=== PATIENT | male | born 1945 | race Caucasian/White ===

== ENCOUNTER → 2020-11-13 18:35 | Outpatient (ROUT) | payer MEDICARE, SELFPAY ==
[2020-11-13 18:56] LABS: Add Manual Diff / Slide Review NO; Basophils Absolute Auto 0 /uL (0-100); Basophils Percent Auto 0.5 % (0-2); Eosinophils Absolute Auto 100 /uL (0-450); Eosinophils Percent Auto 1.6 % (2-4); Hematocrit 40.6 % (41-53); Hemoglobin 13.1 g/dL (13.5-17.5); Lymphocytes Absolute Auto 1200 /uL (1100-4500); Lymphocytes Percent Auto 16.3 % (25-40); Mean Corpuscular HGB Conc 32.3 % (30-36); Mean Corpuscular Hemoglobin 29.1 PG (26-34); Mean Corpuscular Volume 90.2 fL (80-100); Monocytes Absolute Auto 700 /uL (0-900); Monocytes Percent Auto 9.7 % (3-14); Neutrophils Absolute Auto 5400 /uL (1500-7000); Neutrophils Percent Auto 71.9 % (50-75); Platelet Count 221 X10^3/uL (150-400); White Blood Cell Count 7.4 X10^3/uL (4.5-11.0)
[2020-11-13 19:14] LABS: Erythrocyte Sedimentation Rate 6 MM/HR (0-15)
[2020-11-13 19:25] LABS: Alanine Aminotransferase 23 IU/L (<50); Albumin 4.2 g/dL (3.5-5.0); Albumin Globulin Ratio 1.6 (1.0-2.8); Alkaline Phosphatase 60 U/L (38-126); Aspartate Aminotransferase 29 IU/L (17-59); Bilirubin Total 0.4 mg/dL (0.2-1.3); Blood Urea Nitrogen 13 mg/dL (9-20); Carbon Dioxide 25 mmol/L (22-32); Chloride 103 mmol/L (98-107); Cholesterol 123 mg/dL (140-199); Estimated Glomerular Filt Rate > 60.0 mL/min (>60); Globulin 2.7 g/dL (1.7-4.1); Glucose 109 mg/dL (80-110); HDL Cholesterol 31 mg/dL (40-60); HEMOLYSIS < 15 (0-50); LDL Cholesterol Calculated 49 mg/dL (<100); Potassium 4.3 mmol/L (3.4-5.1); Sodium 135 mmol/L (137-145); Total Protein 6.9 g/dL (6.3-8.2); Triglycerides 214 mg/dL (35-150)
[2020-11-13 19:26] LABS: C-Reactive Protein Quant < 0.5 mg/dL (<1.0)
[2020-11-13 19:54] LABS: Prostate Specific Antigen 3.34 ng/mL (0.10-4.00)
== END ==
PROVIDERS: Family Provider Internal Medicine; Visit Provider Internal Medicine
DX: E78.2 Mixed hyperlipidemia (principal); I48.20 Chronic atrial fibrillation, unspecified; M35.3 Polymyalgia rheumatica; N40.1 Benign prostatic hyperplasia with lower urinary tract symptoms
CPT/HCPCS: 80053; 80061; 84153; 84443; 85025; 85651; 86140

== ENCOUNTER → 2021-12-20 16:15 | Outpatient (CLI) | payer MEDICARE, SELFPAY ==
[2021-12-20 16:47] LABS: Hematocrit 46.5 % (41-53); Hemoglobin 15.8 g/dL (13.5-17.5); Mean Corpuscular Hemoglobin 31.8 PG (26-34); Mean Corpuscular Volume 93.6 fL (80-100); Platelet Count 199 X10^3/uL (150-400); Red Blood Cell Count 4.96 X10^6/uL (4.5-5.9); Red Cell Distribution Width 13.8 % (11.6-14.8); White Blood Cell Count 10.2 X10^3/uL (4.5-11.0)
[2021-12-20 17:19] LABS: Alanine Aminotransferase 32 IU/L (<50); Albumin 4.6 g/dL (3.5-5.0); Albumin Globulin Ratio 1.4 (1.0-2.8); Alkaline Phosphatase 65 U/L (38-126); Aspartate Aminotransferase 41 IU/L (17-59); BUN Creatinine Ratio 16.3 (6-22); Bilirubin Total 0.9 mg/dL (0.2-1.3); Blood Urea Nitrogen 14 mg/dL (9-20); Calcium 9.3 mg/dL (8.4-10.2); Carbon Dioxide 26 mmol/L (22-32); Chloride 108 mmol/L (98-107); Cholesterol 147 mg/dL (140-199); Estimated Glomerular Filt Rate > 60 mL/min (>60); Globulin 3.3 g/dL (1.7-4.1); Glucose 100 mg/dL (80-110); HDL Cholesterol 36 mg/dL (40-60); HEMOLYSIS < 15 (0-50); LDL Cholesterol Calculated 64 mg/dL (<100); Potassium 4.3 mmol/L (3.4-5.1); Sodium 141 mmol/L (137-145); Total Protein 7.9 g/dL (6.3-8.2); Triglycerides 234 mg/dL (35-150)
== END ==
PROVIDERS: Family Provider Internal Medicine; PCP Internal Medicine; Referring Provider Internal Medicine; Visit Provider Internal Medicine
DX: D64.9 Anemia, unspecified (principal); E78.2 Mixed hyperlipidemia; G89.29 Other chronic pain; I10 Essential (primary) hypertension; I25.10 Atherosclerotic heart disease of native coronary artery without angina pectoris; I48.20 Chronic atrial fibrillation, unspecified; I73.9 Peripheral vascular disease, unspecified; K21.9 Gastro-esophageal reflux disease without esophagitis; M15.9 Polyosteoarthritis, unspecified; M54.9 Dorsalgia, unspecified; N13.8 Other obstructive and reflux uropathy; N40.1 Benign prostatic hyperplasia with lower urinary tract symptoms; Z79.01 Long term (current) use of anticoagulants
CPT/HCPCS: 36415; 80053; 80061; 84443; 85027

== ENCOUNTER 2022-03-05 11:29 | Emergency (ER) | payer MEDICARE, SELFPAY ==
[2022-03-05] VITALS (18 sets, daily range): BP systolic 118–142; BP diastolic 56–67; PULSE 66–85; RESP 15–71; TEMP 36.3; O2SAT 94–98; BMI 31.6
--- NOTE | 2022-03-05 12:04 | DI.US.S_ITS ---
PROCEDURE: US PELVIC LIMITED INDICATIONS: mass in groin TECHNIQUE: Real-time transabdominal scanning was performed of the right groin, with image documentation. COMPARISON: [facility], CT, CT ABDOMEN RENAL PROTOCOL, 10/18/2021, 9:25. [facility], US, US ARTERIAL DUPLEX LE RT, 03/05/2022, 13:17. FINDINGS: There is a large complex cystic mass measuring 6.0 x 3.6 x 5.1 cm. On Doppler ultrasound, there is no visible vascularity. There is soft tissue edema in right groin. The mass is superficial to the femoral vessels. There is no communication between the fluid collection with adjacent femoral artery or vein. The common femoral artery and vein both appear patent. IMPRESSION: 1. A large complex cystic mass measuring 6.0 x 3.6 x 5.1 cm in the right groin without vascularity on Doppler ultrasound. It is most likely a hematoma. Other diagnostic considerations are a large necrotic lymph node and an abscess. Recommend clinical correlation. 2. There is soft tissue edema in the right groin. We strive to produce accurate, complete, and clear reports of imaging services. To assist us in improving patient care, this report was composed using standard report templates and voice recognition software. Therefore, it may contain abnormal punctuation, insertions and/or omissions. Occasional wrong-word or sound-alike substitutions may occur. Though we review the report and make efforts to correct it, we do recommend that the report be read carefully in proper context to recognize any text inaccuracies. Dictated by: Danii Cast M.D. on 03/05/2022 at 14:20 Approved by: Danii Cast M.D. on 03/05/2022 at 14:27
--- NOTE | 2022-03-05 12:24 | DI.RAD.S_ITS ---
PROCEDURE: XR CHEST 2V INDICATIONS: sepsis TECHNIQUE: 2 views of the chest were acquired. COMPARISON: [facility], CR, XR CHEST 2 VIEWS, 12/13/2020, 8:38. FINDINGS: Surgical changes and devices: Sternotomy. Lungs and pleura: Lungs are clear. No pleural effusions or pneumothorax. Mediastinum: Mediastinal contours are normal. Heart size is normal. 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 Bones and chest wall: No suspicious bony abnormalities. Soft tissues appear unremarkable. IMPRESSION: No acute disease. Dictated by: Danii Cast M.D. on 03/05/2022 at 14:29 Approved by: Danii Cast M.D. on 03/05/2022 at 14:33
--- NOTE | 2022-03-05 12:26 | ED.EXTPRO ---
HPI - Extremity Problem <Fátima Bravo [facility] - Last Filed: 03/05/22 20:11> General Chief complaint: Extremity Problem,Nontraumatic Stated complaint: Poss aneurysm in right artery Time Seen by Provider: 03/05/22 12:04 Source: patient and family Mode of arrival: Wheelchair History of Present Illness HPI Narrative: This is a 76-year-old male with history of two vessel CABG in 2009, clinically anticoagulated on warfarin, aortic valve replacement, MVR, CHF in the past, right carotid endarterectomy and right femoral endarterectomy on 06/26/2021 who presents to the emergency department with four days of fatigue, and right groin swollen mass. Patient endorses four days ago he had fever and chills, endorses tenderness in his right groin, this is where his femoral endarterectomy was completed approximately 8 months ago. Patient denies any nausea vomiting, states he took a COVID test two days ago it was negative, took a COVID test yesterday it was negative, denies any sore throat, shortness of breath at baseline, chest pain, difficulty breathing. He endorses worsening fatigue, and his was concerned that he was having a CHF exacerbation. Patient went to see his primary care provider Dr. Momin this morning in the clinic, and his PCP was concerned for a vascular aneurysm. Patient's states that he has previous stenting from his CABG procedure in to his iliac artery, right femoral artery, and he had a two vessel CABG with right popliteal vein harvest. Patient denies any redness, tenderness, or dependent edema in his right leg, he endorses redness and swelling around his previous endarterectomy graft and is concerned for infection. He denies any sensation changes his right lower extremity better new. He endorses shortness of breath with exertion but not at baseline. Patient states that he did help move a water heater two days ago and felt very fatigued afterwards, his states that he slept for 12 hours after this. His also endorses that he has a penile implant with arousable or built-in. Patient endorses that his INR was 2.6 yesterday, denies any new swelling other than his right groin, new bleeding, chest pain, or shortness of breath at rest. Patient takes warfarin 7.5 mg on Mondays, and 5 mg daily thereafter. Related Data Home Medications Medication Instructions Recorded Confirmed aspirin 81 mg tablet,delayed 81 mg PO DAILY 12/20/21 03/05/22 release calcium carbonate 200 mg calcium 400 mg PO DAILY 12/20/21 03/05/22 (500 mg) chewable tablet (Tums) carvedilol 3.125 mg tablet 3.125 mg PO BID 12/20/21 03/05/22 cholecalciferol (vitamin D3) 25 25 mcg PO DAILY 12/20/21 03/05/22 mcg (1,000 unit) capsule ezetimibe 10 mg tablet (Zetia) 10 mg PO DAILY 12/20/21 03/05/22 finasteride 5 mg tablet 5 mg PO DAILY 12/20/21 03/05/22 glucosamine-chondroitin 500 mg-400 1 cap PO BID 12/20/21 03/05/22 mg capsule losartan 100 mg tablet 100 mg PO DAILY 12/20/21 03/05/22 multivitamin 1 tab PO DAILY 12/20/21 03/05/22 omeprazole 40 mg capsule,delayed 40 mg PO DAILY 12/20/21 03/05/22 release oxybutynin chloride 5 mg 5 mg PO DAILY 12/20/21 03/05/22 tablet,extended release 24 hr rosuvastatin 40 mg tablet 40 mg PO DAILY 12/20/21 03/05/22 tamsulosin 0.4 mg capsule 0.4 mg PO BID 12/20/21 03/05/22 diclofenac sodium 1 % topical gel 4 g topical QID PRN 03/05/22 03/05/22 warfarin 5 mg tablet 5 mg PO .COMPLEX 03/05/22 03/05/22 Previous Rx's Medication Instructions Recorded tramadol 50 mg tablet 50 mg PO Q6H PRN pain #180 tabs 12/20/21 amlodipine 5 mg tablet 5 mg PO DAILY #90 tabs 02/13/22 Allergies Allergy/AdvReac Type Severity Reaction Status Date / Time lisinopril AdvReac Severe gait Verified 12/20/21 15:31 cefazolin [From Anc] AdvReac Nausea Verified 12/20/21 15:31 metoprolol AdvReac Wheezing Verified 12/20/21 15:31 Review of Systems <JHONATHAN Toth - Last Filed: 03/05/22 20:11> Review of Systems Narrative: General: denies fever, chills today but endorses history of this four days ago, endorses fatigue Head/Neck: denies headache, neck pain Eyes: denies visual changes, eye pain Cardio: denies chest pain, palpitations Respiratory: denies shortness of breath, cough, endorses shortness of breath with exertion GI: denies abdominal pain, nausea, vomiting, or diarrhea : denies dysuria, hematuria or flank pain, endorses no urine output in 24 hours three days ago MSK: denies new joint pain, muscle weakness or sensation changes, endorses right groin swelling, redness, tenderness Skin: denies rash, itching or wound Neuro: denies numbness, tingling, dizziness Patient History <JHONATHAN Toth - Last Filed: 03/05/22 20:11> Medical History Abdominal aortic aneurysm (~2018) BPH w urinary obs/LUTS Cataracts, bilateral (~2016) Chicken pox (~1949) Chronic anticoagulation Chronic atrial fibrillation Chronic back pain Colon polyps Coronary artery disease CPAP (continuous positive airway pressure) dependence (~2012) Do not resuscitate Essential hypertension GERD without esophagitis Hearing loss (~1996) Hepatitis A (~1967) History of kidney cancer History of urinary incontinence (~2013) Measles (~1949) Mixed hyperlipidemia Peripheral vascular disease (~1989) Primary osteoarthritis involving multiple joints Right groin mass Severe obesity Stroke (~2018) Surgical History Anesthesia History of appendectomy (~1952) History of arthroscopic knee surgery (~1990) History of arthroscopic knee surgery (~2008) History of carotid endarterectomy (~11/26/18) History of cataract removal with insertion of prosthetic lens History of endarterectomy (~06/26/21) History of femoral angiogram (~2013) History of heart bypass surgery (~2009) History of hernia repair (~1964) History of kidney surgery (~2001) History of repair of rotator cuff (~2009) History of surgery (~1989) History of surgery History of tonsillectomy (~1950) History of vasectomy (~1990) Lump in scrotum (~2008) S/P transesophageal echocardiogram (JOHN) (~05/09/19) Squamous cell skin cancer (~01/24/20) Surgical procedure planned (~05/23/19) Family History Father Diabetes mellitus Mother History of heart disease Hypertension Hyperlipidemia Sister Cerebral hemorrhage Social History Smoking Status: Former smoker Smoking Status: Former smoker Substance Use Type: does not use Exam <JHONATHAN Toth - Last Filed: 03/05/22 20:11> Narrative Exam Narrative: Independently reviewed vitals signs and nursing notes. General: Pleasant, comfortable, in no acute distress, appears fatigued, well groomed Head: atraumatic, symmetrical facial expressions Neck: supple Eyes: equal round and reactive, EOMI, conjunctiva normal Nose: nares patent, no rhinorrhea Mouth/Throat: moist mucus membranes Cardiovascular: regular rate and rhythm, systolic murmur, warm extremities, 1+ peripheral edema to bilateral lower extremities, Respiratory: normal effort, able to speak in complete sentences, no audible wheezing, stridor, or rales. No retractions or tachypnea. GI: abdomen soft, nontender to palpation, nondistended, no masses, no exquisite tenderness with exam, without guarding or rebound. MSK: moves all extremities, neurovascularly intact, no weakness, normal tone, PT and DP pulses are palpable in his right lower extremity, brisk cap refill, normal skin tone without erythema, right groin with erythema surrounding a lump underneath his right femoral scar for his endarterectomy. Tenderness which extends from the anterior of his midline upper thigh to the medial aspect of his upper thigh Skin: brisk capillary refill, no rash, erythema which goes up to the groin line, does not extend into the perineal space, tenderness with mild lymphadenopathy, bedside ultrasound shows blue flow in the medial aspect of darkened echogenic region Neuro: normal speech and cognition, A&O x3 Psych: mental status is grossly normal, congruent mood, normal affect, pleasant and cooperative Initial Vital Signs Initial Vital Signs: Vital Signs Temperature 97.3 F L 03/05/22 11:38 Pulse Rate 71 03/05/22 11:38 Respiratory Rate 71 H 03/05/22 11:38 Blood Pressure 134/64 07/06/22 11:38 Pulse Oximetry 97 03/05/22 11:38 Oxygen Delivery Method 03/05/22 11:38 <Feng Ward MD - Last Filed: 03/13/22 03:41> Initial Vital Signs Initial Vital Signs: Vital Signs Temperature 97.3 F L 03/05/22 11:38 Pulse Rate 71 03/05/22 11:38 Respiratory Rate 71 H 03/05/22 11:38 Blood Pressure 134/64 03/05/22 11:38 Pulse Oximetry 97 03/05/22 11:38 Oxygen Delivery Method 03/05/22 11:38 Course <JHONATHAN Toth - Last Filed: 03/05/22 20:11> Orders Ordered: Discontinued Medications Doxycycline Hyclate (Doxycycline Hyclate 100 Mg Tablet) 100 mg PO NOW ONE Stop: 03/05/22 18:38 Last Admin: 03/05/22 18:49 Dose: 100 mg Documented By: THU Ceftriaxone Sodium 2,000 mg/ (Sodium Chloride) 100 mls @ 200 mls/hr IV NOW ONE Stop: 03/05/22 12:55 Last Infusion: 03/05/22 13:48 Dose: 0 mls/hr Documented By: Admin: 03/05/22 13:15 Dose: 200 mls/hr Documented By: THU Lactated Ringer's (Lactated Ringers) 500 mls @ 1,000 mls/hr IV BOLUS ONE Stop: 03/05/22 13:25 Last Infusion: 03/05/22 13:49 Dose: 0 mls/hr Documented By: Admin: 03/05/22 13:16 Dose: 1,000 mls/hr Documented By: THU Ondansetron HCl (Ondansetron 4 Mg/2 Ml Inj) 4 mg IV NOW ONE Stop: 03/05/22 12:56 Last Admin: 03/05/22 13:16 Dose: 4 mg Documented By: THU Vital Signs Vital signs: Vital Signs - 8 hr 03/05/22 12:35 03/05/22 12:45 03/05/22 12:45 Pulse Rate 67 67 Respiratory Rate 24 24 Blood Pressure 122/56 L 121/58 L Pulse Oximetry 98 97 03/05/22 13:00 03/05/22 13:30 03/05/22 13:54 Pulse Rate 66 77 74 Respiratory Rate 24 22 Blood Pressure Pulse Oximetry 98 98 98 03/05/22 13:54 03/05/22 14:00 03/05/22 14:30 Pulse Rate 74 73 Respiratory Rate 21 Blood Pressure 118/59 L Pulse Oximetry 98 96 03/05/22 15:00 03/05/22 15:30 03/05/22 15:33 Pulse Rate 75 85 Respiratory Rate 24 50 H Blood Pressure 138/64 Pulse Oximetry 96 94 03/05/22 15:33 03/05/22 16:00 03/05/22 16:30 Pulse Rate 80 79 81 Respiratory Rate 26 H 25 H 15 Blood Pressure Pulse Oximetry 96 96 94 03/05/22 17:00 03/05/22 17:30 03/05/22 18:00 Pulse Rate 82 75 82 Respiratory Rate 45 H 19 27 H Blood Pressure Pulse Oximetry 95 96 94 03/05/22 18:30 03/05/22 19:00 03/05/22 19:00 Pulse Rate 78 80 Respiratory Rate 18 Blood Pressure 142/67 H Pulse Oximetry 94 96 <Feng Ward MD - Last Filed: 03/13/22 03:41> Orders Ordered: Discontinued Medications Doxycycline Hyclate (Doxycycline Hyclate 100 Mg Tablet) 100 mg PO NOW ONE Stop: 03/05/22 18:38 Last Admin: 03/05/22 18:49 Dose: 100 mg Documented By: THU Ceftriaxone Sodium 2,000 mg/ (Sodium Chloride) 100 mls @ 200 mls/hr IV NOW ONE Stop: 03/05/22 12:55 Last Infusion: 03/05/22 13:48 Dose: 0 mls/hr Documented By: Admin: 03/05/22 13:15 Dose: 200 mls/hr Documented By: THU Lactated Ringer's (Lactated Ringers) 500 mls @ 1,000 mls/hr IV BOLUS ONE Stop: 03/05/22 13:25 Last Infusion: 03/05/22 13:49 Dose: 0 mls/hr Documented By: Admin: 03/05/22 13:16 Dose: 1,000 mls/hr Documented By: THU Ondansetron HCl (Ondansetron 4 Mg/2 Ml Inj) 4 mg IV NOW ONE Stop: 03/05/22 12:56 Last Admin: 03/05/22 13:16 Dose: 4 mg Documented By: ADK Vital Signs Vital signs: Vital Signs - 8 hr 03/05/22 12:35 03/05/22 12:45 03/05/22 12:45 Pulse Rate 67 67 Respiratory Rate 24 24 Blood Pressure 122/56 L 121/58 L Pulse Oximetry 98 97 03/05/22 13:00 03/05/22 13:30 03/05/22 13:54 Pulse Rate 66 77 74 Respiratory Rate 24 22 Blood Pressure Pulse Oximetry 98 98 98 03/05/22 13:54 03/05/22 14:00 03/05/22 14:30 Pulse Rate 74 73 Respiratory Rate 21 Blood Pressure 118/59 L Pulse Oximetry 98 96 03/05/22 15:00 03/05/22 15:30 03/05/22 15:33 Pulse Rate 75 85 Respiratory Rate 24 50 H Blood Pressure 138/64 Pulse Oximetry 96 94 03/05/22 15:33 03/05/22 16:00 03/05/22 16:30 Pulse Rate 80 79 81 Respiratory Rate 26 H 25 H 15 Blood Pressure Pulse Oximetry 96 96 94 03/05/22 17:00 03/05/22 17:30 03/05/22 18:00 Pulse Rate 82 75 82 Respiratory Rate 45 H 19 27 H Blood Pressure Pulse Oximetry 95 96 94 03/05/22 18:30 03/05/22 19:00 03/05/22 19:00 Pulse Rate 78 80 Respiratory Rate 18 Blood Pressure 142/67 H Pulse Oximetry 94 96 MDM - Extremity (Nontraumatic) <JHONATHAN Toth - Last Filed: 03/05/22 20:11> Lab Data Result diagrams: 03/05/22 12:00 03/05/22 12:00 Labs: Lab Results 03/05/22 03/05/22 03/05/22 Range/Units 12:00 12:00 12:00 WBC 17.7 H (4.5-11.0) X10^3/uL RBC 4.34 L (4.5-5.9) X10^6/uL Hgb 13.6 (13.5-17.5) g/dL Hct 40.9 L (41-53) % MCV 94.4 (80-100) fL MCH 31.3 (26-34) PG MCHC 33.1 (30-36) % RDW 13.8 (11.6-14.8) % Plt Count 207 (150-400) X10^3/uL Neut % (Auto) 84.6 H (50-75) % Lymph % (Auto) 5.0 L (25-40) % [place] % (Auto) 9.9 (3-14) % Eos % (Auto) 0.3 L (2-4) % Baso % (Auto) 0.2 (0-2) % Neut # (Auto) 82298 H (0699-0883) /uL Lymph # (Auto) 900 L (3529-4133) /uL [place] # (Auto) 1700 H (0-900) /uL Eos # (Auto) 100 (0-450) /uL Baso # (Auto) 0 (0-100) /uL PT 29.7 H (10.1-12.7) SECONDS INR 2.6 H (0.9-1.3) APTT 41 H (26.4-36.2) SECONDS Sodium (137-145) mmol/L Potassium (3.4-5.1) mmol/L Chloride (98-107) mmol/L Carbon Dioxide (22-32) mmol/L BUN (9-20) mg/dL Creatinine (0.66-1.25) mg/dL Estimated GFR (>60) mL/min BUN/Creatinine Ratio (6-22) Glucose (80-110) mg/dL Lactate (0.7-2.1) mmol/L Calcium (8.4-10.2) mg/dL Total Bilirubin (0.2-1.3) mg/dL AST (17-59) IU/L ALT (<50) IU/L Alkaline Phosphatase (38-126) U/L Total Creatine Kinase (55-170) U/L CK-MB (CK-2) CK-MB (CK-2) Rel Index Troponin I (0.01-0.034) ng/mL NT-Pro-B Natriuret Pep 891 H (<450) pg/mL Total Protein (6.3-8.2) g/dL Albumin (3.5-5.0) g/dL Globulin (1.7-4.1) g/dL Albumin/Globulin Ratio (1.0-2.8) Procalcitonin (<0.5) ng/mL Urine Color Urine Appearance Urine pH (4.5-8.0) Ur Specific [place] (1.000-1.035) Urine Protein (Negative) Urine Glucose (UA) (Negative) g/dL Urine Ketones (NEGATIVE) Urine Occult Blood (Negative) Urine Nitrate (Negative) Urine Bilirubin (NEGATIVE) Urine Urobilinogen (0.2) E.U./dL Ur Leukocyte Esterase (NEGATIVE) Urine RBC (0-5/HPF) Urine WBC (0-5/HPF) Ur Squamous Epith Cells (0-5/HPF) Amorphous Sediment Urine Bacteria (None) Ur Culture Indicated? SARS-CoV-2 (PCR) (Negative) 03/05/22 03/05/22 03/05/22 Range/Units 12:00 12:00 12:00 WBC (4.5-11.0) X10^3/uL RBC (4.5-5.9) X10^6/uL Hgb (13.5-17.5) g/dL Hct (41-53) % MCV (80-100) fL MCH (26-34) PG MCHC (30-36) % RDW (11.6-14.8) % Plt Count (150-400) X10^3/uL Neut % (Auto) (50-75) % Lymph % (Auto) (25-40) % [place] % (Auto) (3-14) % Eos % (Auto) (2-4) % Baso % (Auto) (0-2) % Neut # (Auto) (7181-6926) /uL Lymph # (Auto) (1170-6649) /uL [place] # (Auto) (0-900) /uL Eos # (Auto) (0-450) /uL Baso # (Auto) (0-100) /uL PT (10.1-12.7) SECONDS INR (0.9-1.3) APTT (26.4-36.2) SECONDS Sodium 135 L (137-145) mmol/L Potassium 4.1 (3.4-5.1) mmol/L Chloride 102 (98-107) mmol/L Carbon Dioxide 27 (22-32) mmol/L BUN 16 (9-20) mg/dL Creatinine 0.72 (0.66-1.25) mg/dL Estimated GFR > 60 (>60) mL/min BUN/Creatinine Ratio 22.2 H (6-22) Glucose 113 H (80-110) mg/dL Lactate 0.9 (0.7-2.1) mmol/L Calcium 8.4 (8.4-10.2) mg/dL Total Bilirubin 0.9 (0.2-1.3) mg/dL AST 63 H (17-59) IU/L ALT 43 (<50) IU/L Alkaline Phosphatase 84 (38-126) U/L Total Creatine Kinase 42 L (55-170) U/L CK-MB (CK-2) TNP CK-MB (CK-2) Rel Index TNP Troponin I < 0.012 (0.01-0.034) ng/mL NT-Pro-B Natriuret Pep (<450) pg/mL Total Protein 7.0 (6.3-8.2) g/dL Albumin 3.8 (3.5-5.0) g/dL Globulin 3.2 (1.7-4.1) g/dL Albumin/Globulin Ratio 1.2 (1.0-2.8) Procalcitonin 0.08 (<0.5) ng/mL Urine Color Urine Appearance Urine pH (4.5-8.0) Ur Specific [place] (1.000-1.035) Urine Protein (Negative) Urine Glucose (UA) (Negative) g/dL Urine Ketones (NEGATIVE) Urine Occult Blood (Negative) Urine Nitrate (Negative) Urine Bilirubin (NEGATIVE) Urine Urobilinogen (0.2) E.U./dL Ur Leukocyte Esterase (NEGATIVE) Urine RBC (0-5/HPF) Urine WBC (0-5/HPF) Ur Squamous Epith Cells (0-5/HPF) Amorphous Sediment Urine Bacteria (None) Ur Culture Indicated? SARS-CoV-2 (PCR) (Negative) 03/05/22 03/05/22 Range/Units 12:51 15:47 WBC (4.5-11.0) X10^3/uL RBC (4.5-5.9) X10^6/uL Hgb (13.5-17.5) g/dL Hct (41-53) % MCV (80-100) fL MCH (26-34) PG MCHC (30-36) % RDW (11.6-14.8) % Plt Count (150-400) X10^3/uL Neut % (Auto) (50-75) % Lymph % (Auto) (25-40) % [place] % (Auto) (3-14) % Eos % (Auto) (2-4) % Baso % (Auto) (0-2) % Neut # (Auto) (6962-8900) /uL Lymph # (Auto) (2529-7816) /uL [place] # (Auto) (0-900) /uL Eos # (Auto) (0-450) /uL Baso # (Auto) (0-100) /uL PT (10.1-12.7) SECONDS INR (0.9-1.3) APTT (26.4-36.2) SECONDS Sodium (137-145) mmol/L Potassium (3.4-5.1) mmol/L Chloride (98-107) mmol/L Carbon Dioxide (22-32) mmol/L BUN (9-20) mg/dL Creatinine (0.66-1.25) mg/dL Estimated GFR (>60) mL/min BUN/Creatinine Ratio (6-22) Glucose (80-110) mg/dL Lactate (0.7-2.1) mmol/L Calcium (8.4-10.2) mg/dL Total Bilirubin (0.2-1.3) mg/dL AST (17-59) IU/L ALT (<50) IU/L Alkaline Phosphatase (38-126) U/L Total Creatine Kinase (55-170) U/L CK-MB (CK-2) CK-MB (CK-2) Rel Index Troponin I (0.01-0.034) ng/mL NT-Pro-B Natriuret Pep (<450) pg/mL Total Protein (6.3-8.2) g/dL Albumin (3.5-5.0) g/dL Globulin (1.7-4.1) g/dL Albumin/Globulin Ratio (1.0-2.8) Procalcitonin (<0.5) ng/mL Urine Color Yellow Urine Appearance Clear Urine pH 5.5 (4.5-8.0) Ur Specific [place] 1.010 (1.000-1.035) Urine Protein Trace H (Negative) Urine Glucose (UA) Negative (Negative) g/dL Urine Ketones Negative (NEGATIVE) Urine Occult Blood Trace-lysed (Negative) Urine Nitrate Negative (Negative) Urine Bilirubin Negative (NEGATIVE) Urine Urobilinogen 2.0 H (0.2) E.U./dL Ur Leukocyte Esterase Negative (NEGATIVE) Urine RBC 0-1/hpf (0-5/HPF) Urine WBC 1-5/hpf (0-5/HPF) Ur Squamous Epith Cells 1-5 /hpf (0-5/HPF) Amorphous Sediment 1+ Urine Bacteria None seen (None) Ur Culture Indicated? Cult not indicated SARS-CoV-2 (PCR) Negative (Negative) Imaging Data US Rt groin: Radiologist's Impression: PROCEDURE:? US PELVIC LIMITED ? INDICATIONS:? mass in groin ? TECHNIQUE:? Real-time transabdominal scanning was performed of the right groin, with image documentation.? ? COMPARISON:? [facility], CT, CT ABDOMEN RENAL PROTOCOL, 10/18/2021, 9:25.? [facility], US, US ARTERIAL DUPLEX LE RT, 03/05/2022, 13:17. ? FINDINGS:? There is a large complex cystic mass measuring 6.0 x 3.6 x 5.1 cm.? On Doppler ultrasound, there is no visible vascularity.? There is soft tissue edema in right groin.? The mass is superficial to the femoral vessels.? There is no communication between the fluid collection with adjacent femoral artery or vein.? The common femoral artery and vein both appear patent. ? IMPRESSION:? ? 1. A large complex cystic mass measuring 6.0 x 3.6 x 5.1 cm in the right groin without vascularity on Doppler ultrasound.? It is most likely a hematoma.? Other diagnostic considerations are a large necrotic lymph node and an abscess.? Recommend clinical correlation. ? 2. There is soft tissue edema in the right groin.? ? ? We strive to produce accurate, complete, and clear reports of imaging services. To assist us in improving patient care, this report was composed using standard report templates and voice recognition software. Therefore, it may contain abnormal punctuation, insertions and/or omissions. Occasional wrong-word or sound-alike substitutions may occur. Though we review the report and make efforts to correct it, we do recommend that the report be read carefully in proper context to recognize any text inaccuracies. ? ? Dictated by: Danii Cast M.D. on 03/05/2022 at 14:20 ? ? Approved by: Danii Cast M.D. on 03/05/2022 at 14:27 ? Chest x-ray: Radiologist's Impression: PROCEDURE:? XR CHEST 2V ? INDICATIONS:? sepsis ? TECHNIQUE:? 2 views of the chest were acquired.? ? COMPARISON:? [facility], , XR CHEST 2 VIEWS, 12/13/2020, 8:38. ? FINDINGS:? ? Surgical changes and devices:? Sternotomy.? ? Lungs and pleura:? Lungs are clear.? No pleural effusions or pneumothorax.? ? Mediastinum:? Mediastinal contours are normal.? Heart size is normal.? 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 ? Bones and chest wall:? No suspicious bony abnormalities.? Soft tissues appear unremarkable.? ? IMPRESSION:? No acute disease. ? ? Dictated by: Danii Cast M.D. on 03/05/2022 at 14:29 ? ? Approved by: Danii Cast M.D. on 03/05/2022 at 14:33 ? femoral artery US: Radiologist's Impression: PROCEDURE:? US ARTERIAL DUPLEX LE RT ? INDICATIONS:? rt femoral ? TECHNIQUE:? Color and pulse Doppler interrogation was performed of the right lower extremity arterial system, with image documentation.? ? COMPARISON:? [facility], , US PELVIC LIMITED, 03/05/2022, 12:21. ? FINDINGS:? Common femoral artery:? 169 cm/sec, with monophasic flow.? Deep femoral artery:? Not visualized.? Proximal superficial femoral artery:? 83 cm/sec, with monophasic flow.? Mid superficial femoral artery:? 104 cm/sec, with biphasic flow.? Distal superficial femoral artery:? 141 cm/sec, with biphasic flow.? Popliteal artery:? 49 cm/sec, with triphasic flow.? Posterior tibial artery:? 54 cm/sec, with biphasic flow.? Anterior tibial artery/dorsalis pedis:? 37 cm/sec, with biphasic flow.? Malin-scale imaging description:? Grossly normal. ? There is a large complex cystic mass in the right groin measuring 6.7 x 3.8 x 4.8 cm, demonstrating no vascularity.? No connection of the mass to the, or superficial femoral arteries. ? ? IMPRESSION:? ? 1. Patent right lower extremity arteries.? No high-grade stenosis or occlusion. ? 2. No pseudoaneurysm in the right groin. ? 3. Large complex cystic mass in the right groin measuring 6.7 x 3.8 x 4.8 cm.? Differential diagnoses are hematoma versus abscess. ? 4. The common and superficial femoral arteries are suboptimally visualized because of the right groin mass.? ? ? Dictated by: Danii Cast M.D. on 03/05/2022 at 16:39 ? ? Approved by: Danii Cast M.D. on 03/05/2022 at 16:46 ? ECG Data Interpretation: EKG independently reviewed by Dr. Ward and reveals normal sinus rhythm at 67 bpm with regular axis and intervals. No STEMI, ST segment changes, arrhythmia, or acute ischemic changes. MDM Narrative Medical decision making narrative: This is a pleasant 76-year-old male with significant cardiac and vascular history who presents to the emergency department today for four days of fatigue, chills, fever, erythema with concern for abscess at his prior right femoral endarterectomy surgical site. He has significant is tenting and history with claudication is in the past, has had stents fail, he is chronically anticoagulated on warfarin. Warfarin dosing is 7.5 mg Mondays, all other days of the week 5 mg. His INR goal is 2-3, yesterday his INR was 2.6, today it is 2.6 again. The concern about this right femoral abscess versus cellulitis versus pseudocyst is that patient had an endarterectomy with manipulation of his right femoral artery on June 26, 2021. He has a history of aortic valve replacement, MVR repair, two vessel CABG, history of AFib, hypertension, hyperlipidemia, and an abdominal aortic aneurysm with iliac stenting as well. He is a DNR. Initially, lab work and a pelvis ultrasound was ordered to evaluate if this was an abscess versus pseudocyst verses infected lymph node. The ultrasound showed a large complex cystic mass measuring 6 x 3.6 x 5.1 cm in the right groin without vascularity on Doppler ultrasound. They said it was likely a hematoma. And they noted the soft tissue edema in his right groin. Patient does have significant erythema and edema in his right groin with mild lymphadenopathy, he does not have any voiding difficulties, there is no drainage or superficial wound. Ultrasound arterial duplex of his right lower extremity was obtained, it took 4 hours for the report, it showed patent right lower extremity arteries, no high-grade stenosis or occlusion, no pseudoaneurysm in the right groin, a large complex cystic mass measuring slightly larger than the 1st measurements at 6.7 x 3.8 x 4.8 cm. The common and superficial femoral arteries are suboptimally visualized due to this right groin mass. Please see the ultrasound report for flows. Consultation with Dr. Agustin at [facility] who was able to view all of his images, discussed patient's case and he is familiar with this patient, he thinks this is likely an infected seroma sitting above his vessels. Would like the patient to start doxycycline, and follow-up with him in the clinic tomorrow and an opening in his schedule was made. There is no beds at the hospital, we tried to transfer and admit this gentleman but there are no beds available and there was not an option to do so. Patient was given ceftriaxone in the emergency department, 500 mL of lactated Ringer's, he was able to void, his urine was dark but it was clear. No other significant findings were on his lab work. Dr. Zayda love did request an abdominal pelvis angio with runoff, disorder which changed to any aorta with runoff CTA which included what he was looking for, this image was pushed to [facility]. That Dr. Agustin will either admit the patient through the emergency department or work on trying to admit him to that hospital from the clinic if he needs surgical drainage of this or monitoring with IV antibiotics. Patient's surgeon for his endarterectomy in May was Dr. Andrea Cox from this same practice. Patient was given doxycycline prior to his discharge, he is encouraged to stay hydrated, to follow-up at the clinic tomorrow was given a phone number and an address and Dr. Zayda love ensured that there would be provider to see the patient tomorrow when he arrives. All of this was shared with the patient and his , they state understanding and will follow-up accordingly. He also emphasized to hold patient's warfarin tonight in preparation for a possible procedure. Patient is appropriate and amenable to discharge home. Vital signs are stable on repeat examination is unremarkable. Patient has been informed of results. Patient has been given strict return to ER precautions for any new or worsening symptoms. Patient understands to follow up closely with outpatient providers as instructed. Patient understands plan and agrees to discharge home. All questions and concerns answered at this time. <Feng Ward MD - Last Filed: 03/13/22 03:41> Lab Data Labs: Lab Results 03/05/22 03/05/22 03/05/22 Range/Units 12:00 12:00 12:00 WBC 17.7 H (4.5-11.0) X10^3/uL RBC 4.34 L (4.5-5.9) X10^6/uL Hgb 13.6 (13.5-17.5) g/dL Hct 40.9 L (41-53) % MCV 94.4 (80-100) fL MCH 31.3 (26-34) PG MCHC 33.1 (30-36) % RDW 13.8 (11.6-14.8) % Plt Count 207 (150-400) X10^3/uL Neut % (Auto) 84.6 H (50-75) % Lymph % (Auto) 5.0 L (25-40) % [place] % (Auto) 9.9 (3-14) % Eos % (Auto) 0.3 L (2-4) % Baso % (Auto) 0.2 (0-2) % Neut # (Auto) 79442 H (5063-7290) /uL Lymph # (Auto) 900 L (9421-5124) /uL Pitkin # (Auto) 1700 H (0-900) /uL Eos # (Auto) 100 (0-450) /uL Baso # (Auto) 0 (0-100) /uL PT 29.7 H (10.1-12.7) SECONDS INR 2.6 H (0.9-1.3) APTT 41 H (26.4-36.2) SECONDS Sodium (137-145) mmol/L Potassium (3.4-5.1) mmol/L Chloride (98-107) mmol/L Carbon Dioxide (22-32) mmol/L BUN (9-20) mg/dL Creatinine (0.66-1.25) mg/dL Estimated GFR (>60) mL/min BUN/Creatinine Ratio (6-22) Glucose (80-110) mg/dL Lactate (0.7-2.1) mmol/L Calcium (8.4-10.2) mg/dL Total Bilirubin (0.2-1.3) mg/dL AST (17-59) IU/L ALT (<50) IU/L Alkaline Phosphatase (38-126) U/L Total Creatine Kinase (55-170) U/L CK-MB (CK-2) CK-MB (CK-2) Rel Index Troponin I (0.01-0.034) ng/mL NT-Pro-B Natriuret Pep 891 H (<450) pg/mL Total Protein (6.3-8.2) g/dL Albumin (3.5-5.0) g/dL Globulin (1.7-4.1) g/dL Albumin/Globulin Ratio (1.0-2.8) Procalcitonin (<0.5) ng/mL Urine Color Urine Appearance Urine pH (4.5-8.0) Ur Specific [place] (1.000-1.035) Urine Protein (Negative) Urine Glucose (UA) (Negative) g/dL Urine Ketones (NEGATIVE) Urine Occult Blood (Negative) Urine Nitrate (Negative) Urine Bilirubin (NEGATIVE) Urine Urobilinogen (0.2) E.U./dL Ur Leukocyte Esterase (NEGATIVE) Urine RBC (0-5/HPF) Urine WBC (0-5/HPF) Ur Squamous Epith Cells (0-5/HPF) Amorphous Sediment Urine Bacteria (None) Ur Culture Indicated? SARS-CoV-2 (PCR) (Negative) 03/05/22 03/05/22 03/05/22 Range/Units 12:00 12:00 12:00 WBC (4.5-11.0) X10^3/uL RBC (4.5-5.9) X10^6/uL Hgb (13.5-17.5) g/dL Hct (41-53) % MCV (80-100) fL MCH (26-34) PG MCHC (30-36) % RDW (11.6-14.8) % Plt Count (150-400) X10^3/uL Neut % (Auto) (50-75) % Lymph % (Auto) (25-40) % Pitkin % (Auto) (3-14) % Eos % (Auto) (2-4) % Baso % (Auto) (0-2) % Neut # (Auto) (8230-4456) /uL Lymph # (Auto) (3256-9981) /uL Pitkin # (Auto) (0-900) /uL Eos # (Auto) (0-450) /uL Baso # (Auto) (0-100) /uL PT (10.1-12.7) SECONDS INR (0.9-1.3) APTT (26.4-36.2) SECONDS Sodium 135 L (137-145) mmol/L Potassium 4.1 (3.4-5.1) mmol/L Chloride 102 (98-107) mmol/L Carbon Dioxide 27 (22-32) mmol/L BUN 16 (9-20) mg/dL Creatinine 0.72 (0.66-1.25) mg/dL Estimated GFR > 60 (>60) mL/min BUN/Creatinine Ratio 22.2 H (6-22) Glucose 113 H (80-110) mg/dL Lactate 0.9 (0.7-2.1) mmol/L Calcium 8.4 (8.4-10.2) mg/dL Total Bilirubin 0.9 (0.2-1.3) mg/dL AST 63 H (17-59) IU/L ALT 43 (<50) IU/L Alkaline Phosphatase 84 (38-126) U/L Total Creatine Kinase 42 L (55-170) U/L CK-MB (CK-2) TNP CK-MB (CK-2) Rel Index TNP Troponin I < 0.012 (0.01-0.034) ng/mL NT-Pro-B Natriuret Pep (<450) pg/mL Total Protein 7.0 (6.3-8.2) g/dL Albumin 3.8 (3.5-5.0) g/dL Globulin 3.2 (1.7-4.1) g/dL Albumin/Globulin Ratio 1.2 (1.0-2.8) Procalcitonin 0.08 (<0.5) ng/mL Urine Color Urine Appearance Urine pH (4.5-8.0) Ur Specific [place] (1.000-1.035) Urine Protein (Negative) Urine Glucose (UA) (Negative) g/dL Urine Ketones (NEGATIVE) Urine Occult Blood (Negative) Urine Nitrate (Negative) Urine Bilirubin (NEGATIVE) Urine Urobilinogen (0.2) E.U./dL Ur Leukocyte Esterase (NEGATIVE) Urine RBC (0-5/HPF) Urine WBC (0-5/HPF) Ur Squamous Epith Cells (0-5/HPF) Amorphous Sediment Urine Bacteria (None) Ur Culture Indicated? SARS-CoV-2 (PCR) (Negative) 03/05/22 03/05/22 Range/Units 12:51 15:47 WBC (4.5-11.0) X10^3/uL RBC (4.5-5.9) X10^6/uL Hgb (13.5-17.5) g/dL Hct (41-53) % MCV (80-100) fL MCH (26-34) PG MCHC (30-36) % RDW (11.6-14.8) % Plt Count (150-400) X10^3/uL Neut % (Auto) (50-75) % Lymph % (Auto) (25-40) % Pitkin % (Auto) (3-14) % Eos % (Auto) (2-4) % Baso % (Auto) (0-2) % Neut # (Auto) (8473-8301) /uL Lymph # (Auto) (5111-2668) /uL Pitkin # (Auto) (0-900) /uL Eos # (Auto) (0-450) /uL Baso # (Auto) (0-100) /uL PT (10.1-12.7) SECONDS INR (0.9-1.3) APTT (26.4-36.2) SECONDS Sodium (137-145) mmol/L Potassium (3.4-5.1) mmol/L Chloride (98-107) mmol/L Carbon Dioxide (22-32) mmol/L BUN (9-20) mg/dL Creatinine (0.66-1.25) mg/dL Estimated GFR (>60) mL/min BUN/Creatinine Ratio (6-22) Glucose (80-110) mg/dL Lactate (0.7-2.1) mmol/L Calcium (8.4-10.2) mg/dL Total Bilirubin (0.2-1.3) mg/dL AST (17-59) IU/L ALT (<50) IU/L Alkaline Phosphatase (38-126) U/L Total Creatine Kinase (55-170) U/L CK-MB (CK-2) CK-MB (CK-2) Rel Index Troponin I (0.01-0.034) ng/mL NT-Pro-B Natriuret Pep (<450) pg/mL Total Protein (6.3-8.2) g/dL Albumin (3.5-5.0) g/dL Globulin (1.7-4.1) g/dL Albumin/Globulin Ratio (1.0-2.8) Procalcitonin (<0.5) ng/mL Urine Color Yellow Urine Appearance Clear Urine pH 5.5 (4.5-8.0) Ur Specific [place] 1.010 (1.000-1.035) Urine Protein Trace H (Negative) Urine Glucose (UA) Negative (Negative) g/dL Urine Ketones Negative (NEGATIVE) Urine Occult Blood Trace-lysed (Negative) Urine Nitrate Negative (Negative) Urine Bilirubin Negative (NEGATIVE) Urine Urobilinogen 2.0 H (0.2) E.U./dL Ur Leukocyte Esterase Negative (NEGATIVE) Urine RBC 0-1/hpf (0-5/HPF) Urine WBC 1-5/hpf (0-5/HPF) Ur Squamous Epith Cells 1-5 /hpf (0-5/HPF) Amorphous Sediment 1+ Urine Bacteria None seen (None) Ur Culture Indicated? Cult not indicated SARS-CoV-2 (PCR) Negative (Negative) Discharge Plan Departure Patient Disposition: Home Clinical Impression: Abscess or cellulitis of groin, Chronic anticoagulation, Hx of endarterectomy, Aneurysm of infrarenal abdominal aorta Instructions: DI for Cellulitis -- Adult Activity Restrictions/Additional Instructions: *You have been diagnosed with either an abscess or an infected seroma which is overlying your previous stents, femoral artery grafting and does not appear to have an association with the vessel itself and is not a pseudocyst. Thank you for your exquisite patience today. Do not take your warfarin tonight, tomorrow, please call Dr. Reynoso in the morning and they will expect your phone call and give you a time to come in to the office to fit you in to the schedule to be seen by Dr. Reynoso or one of the other providers in the office. They will evaluate this and determine if you need to be admitted there for drainage, evaluation, observation, IV antibiotics, or other. Please take doxycycline tomorrow morning and go to the office afterwards when they say it is okay to go. Drink plenty of water, take Tylenol as needed for pain or fever, you can use cool compresses or ice if it is helpful. Outline it if you can where the redness stops. Please return to the emergency department for any new or worsening conditions. If you do, please go directly to [facility] because they can work on admitting you from the emergency department. [facility] [address] [phone] *What to do: *Please continue to take your regular medications as directed. [ x] New medication prescriptions sent to your pharmacy: [[facility] ] [ ] New medication written as a paper prescription [] No new medications given *Please follow up with your primary care provider in 2-3 days, call for an appointment. Let them know you were seen in the Emergency Department and that we asked that you be seen for follow-up. We will electronically transmit a record of today's note if your PCP is in our system *If you do not have a primary care provider please contact [phone] to establish care with one of the [facility] primary care providers. *Return to Emergency Department if you should have any new, worsening or concerning symptoms, such as [fever greater than 101F, chills, worsening pain, persistent vomiting or other bothersome symptoms] Prescriptions: No Action amlodipine 5 mg tablet 5 mg PO DAILY Qty: 90 3RF calcium carbonate [Tums] 200 mg calcium (500 mg) tablet,chewable 400 mg PO DAILY aspirin 81 mg tablet,delayed release (DR/EC) 81 mg PO DAILY carvedilol 3.125 mg tablet 3.125 mg PO BID Rx Instructions: must administer with a meal/food cholecalciferol (vitamin D3) 25 mcg (1,000 unit) capsule 25 mcg PO DAILY ezetimibe [Zetia] 10 mg tablet 10 mg PO DAILY finasteride 5 mg tablet 5 mg PO DAILY glucosamine-chondroitin 500-400 mg capsule 1 cap PO BID Rx Instructions: give with meal/snack losartan 100 mg tablet 100 mg PO DAILY multivitamin Tablet 1 tab PO DAILY omeprazole 40 mg capsule,delayed release(DR/EC) 40 mg PO DAILY oxybutynin chloride 5 mg tablet extended release 24 hr 5 mg PO DAILY rosuvastatin 40 mg tablet 40 mg PO DAILY tamsulosin 0.4 mg capsule 0.4 mg PO BID tramadol 50 mg tablet 50 mg PO Q6H PRN (Reason: pain) Qty: 180 1RF diclofenac sodium 1 % gel 4 g topical QID PRN Rx Instructions: apply to single knee, ankle, foot; for foot includes sole/toes/top of foot warfarin 5 mg tablet 5 mg PO .COMPLEX Rx Instructions: 5 mg orally 7.5 mg on Mondays; 5 mg all other days.; managed by [facility] cardiology Referrals: Srinivasan Agustin MD [Non-Staff] - Andrea Cox MD [Non-Staff] - Joel Momin MD [Primary Care Provider] - Visit Report Forms: Patient Portal/API <Feng Ward MD - Last Filed: 03/13/22 03:41> Cosign ED Attending Cosignature Attestation: I was immediately available in the department for consultation. This documentation has been reviewed and I agree with assessment and plan. Supervised by Feng Ward MD
[2022-03-05 12:33] LABS: Add Manual Diff / Slide Review NO; Basophils Absolute Auto 0 /uL (0-100); Basophils Percent Auto 0.2 % (0-2); Eosinophils Absolute Auto 100 /uL (0-450); Eosinophils Percent Auto 0.3 % (2-4); Hematocrit 40.9 % (41-53); Hemoglobin 13.6 g/dL (13.5-17.5); INR 2.6 (0.9-1.3); Lymphocytes Absolute Auto 900 /uL (1100-4500); Mean Corpuscular HGB Conc 33.1 % (30-36); Mean Corpuscular Hemoglobin 31.3 PG (26-34); Mean Corpuscular Volume 94.4 fL (80-100); Monocytes Absolute Auto 1700 /uL (0-900); Monocytes Percent Auto 9.9 % (3-14); Neutrophils Absolute Auto 15000 /uL (1500-7000); Neutrophils Percent Auto 84.6 % (50-75); Platelet Count 207 X10^3/uL (150-400); Prothrombin Time 29.7 SECONDS (10.1-12.7); Red Blood Cell Count 4.34 X10^6/uL (4.5-5.9); Red Cell Distribution Width 13.8 % (11.6-14.8); White Blood Cell Count 17.7 X10^3/uL (4.5-11.0)
[2022-03-05 12:35] LABS: PTT Partial Thromboplastin Tim 41 SECONDS (26.4-36.2)
[2022-03-05 12:37] LABS: Creatine Kinase 42 U/L (55-170)
[2022-03-05 12:39] LABS: Alanine Aminotransferase 43 IU/L (<50); Albumin 3.8 g/dL (3.5-5.0); Albumin Globulin Ratio 1.2 (1.0-2.8); Alkaline Phosphatase 84 U/L (38-126); Aspartate Aminotransferase 63 IU/L (17-59); BUN Creatinine Ratio 22.2 (6-22); Bilirubin Total 0.9 mg/dL (0.2-1.3); Blood Urea Nitrogen 16 mg/dL (9-20); Calcium 8.4 mg/dL (8.4-10.2); Carbon Dioxide 27 mmol/L (22-32); Chloride 102 mmol/L (98-107); Estimated Glomerular Filt Rate > 60 mL/min (>60); Globulin 3.2 g/dL (1.7-4.1); Glucose 113 mg/dL (80-110); HEMOLYSIS < 15 (0-50); Lactate (Lactic Acid) 0.9 mmol/L (0.7-2.1); Potassium 4.1 mmol/L (3.4-5.1); Sodium 135 mmol/L (137-145)
[2022-03-05 12:48] LABS: NT-proBNP (BNP-Adult 18+) 891 pg/mL (<450)
[2022-03-05 12:51] LABS: Troponin I < 0.012 ng/mL (0.01-0.034)
[2022-03-05 12:55] LABS: Procalcitonin 0.08 ng/mL (<0.5)
--- NOTE | 2022-03-05 12:55 | DI.US.S_ITS ---
PROCEDURE: US ARTERIAL DUPLEX LE RT INDICATIONS: rt femoral TECHNIQUE: Color and pulse Doppler interrogation was performed of the right lower extremity arterial system, with image documentation. COMPARISON: [facility], , [facility] LIMITED, 03/05/2022, 12:21. FINDINGS: Common femoral artery: 169 cm/sec, with monophasic flow. Deep femoral artery: Not visualized. Proximal superficial femoral artery: 83 cm/sec, with monophasic flow. Mid superficial femoral artery: 104 cm/sec, with biphasic flow. Distal superficial femoral artery: 141 cm/sec, with biphasic flow. Popliteal artery: 49 cm/sec, with triphasic flow. Posterior tibial artery: 54 cm/sec, with biphasic flow. Anterior tibial artery/dorsalis pedis: 37 cm/sec, with biphasic flow. Malin-scale imaging description: Grossly normal. There is a large complex cystic mass in the right groin measuring 6.7 x 3.8 x 4.8 cm, demonstrating no vascularity. No connection of the mass to the, or superficial femoral arteries. IMPRESSION: 1. Patent right lower extremity arteries. No high-grade stenosis or occlusion. 2. No pseudoaneurysm in the right groin. 3. Large complex cystic mass in the right groin measuring 6.7 x 3.8 x 4.8 cm. Differential diagnoses are hematoma versus abscess. 4. The common and superficial femoral arteries are suboptimally visualized because of the right groin mass. Dictated by: Danii Cast M.D. on 03/05/2022 at 16:39 Approved by: Danii Cast M.D. on 03/05/2022 at 16:46
[2022-03-05 13:10] LABS: COVID19 -Nasal RAPID Negative (Negative)
[2022-03-05] MEDS: cefTRIAXone 2,000 MG in SODIUM CHLORIDE 0.9% 100 ML 200 MG IV (13:15)
[2022-03-05] MEDS: ONDANSETRON 4 MG/2 ML INJ IV (13:16)
[2022-03-05] MEDS: LACTATED RINGERS 500 ML 1000 ML IV (13:16)
[2022-03-05 15:51] LABS: Appearance Urine UA CLEAR; Bilirubin Urine UA NEGATIVE (NEGATIVE); Color Urine UA YELLOW; Glucose Urine UA NEGATIVE (Negative); Ketones Urine UA NEGATIVE (NEGATIVE); Leukocyte Esterase Urine UA NEGATIVE (NEGATIVE); Nitrite Urine UA NEGATIVE (Negative); Occult Blood Urine UA TRACE-LYSED (Negative); Protein Urine UA TRACE (Negative); pH Urine UA 5.5 (4.5-8.0)
[2022-03-05 16:13] LABS: RBC Urine 0-1/HPF (0-5/HPF); Squamous Epithelial Cell Urine 1-5 /HPF (0-5/HPF); WBC Urine 1-5/HPF (0-5/HPF)
[2022-03-05 16:14] LABS: Amorphous Sediment Urine 1+; Bacteria Urine None Seen; Culture Indicated Urine Cult Not Indicated
--- NOTE | 2022-03-05 17:30 | DI.CT.S_ITS ---
PROCEDURE: CT ANGIO ABD AORTA RUNOFF INDICATIONS: rt femoral seroma, w/prev grafting and stenting to rt femur TECHNIQUE: After the administration of intravenous contrast, 2.5 mm sections acquired from T12 to the feet, with optional delayed image acquisition from the knees to the feet. 3-dimensional maximum intensity projection (MIP) coronal and sagittal reformats, and/or 3-dimensional volume rendering reformatting was then performed. For radiation dose reduction, the following was used: automated exposure control. COMPARISON: [facility], US, US ARTERIAL DUPLEX LE RT, 03/05/2022, 13:17. FINDINGS: Image quality: Excellent. Extravascular tissues: Lung bases are clear. Heart size is normal. Liver is normal in size and enhancement. Gallbladder is unremarkable . Biliary system is non dilated. Pancreas enhances normally. Spleen is normal in size and enhancement. No adrenal nodules. Kidneys are normal in size and enhancement, without hydronephrosis. Non opacified bowel loops demonstrate normal wall thickness and enhancement. No free fluid or air. No retroperitoneal or mesenteric adenopathy. No ventral hernias. Bladder wall thickness is normal. No inguinal hernias or adenopathy. No suspicious bony lesions. No vertebral body compression fractures. Penile prosthesis. Large seroma or liquefied hematoma, proximal right thigh, measuring approximately 5.5 x 4.1 x 4.5 cm. Abdominal aorta: Borderline aneurysmal, measuring 3.1 cm. Dense peripheral calcifications. SMA and celiac are widely patent. Question bilateral renal artery stenosis, likely only milder moderate. No focal aortic stenosis. Right lower extremity: Diffuse calcification of the iliac. Mild right common iliac artery stenotic disease. Patent right external iliac artery stent. Right femoral endarterectomy. Extensive postsurgical change in the right groin. A large seroma or hematoma exerts mass effect on the right SFA. There is moderate to severe proximal right SFA stenotic disease period there is mild distal SFA stenotic disease. The popliteal is grossly patent. There is three-vessel runoff. Left lower extremity: Patent left common iliac artery stent. Mild diffuse left external iliac stenotic disease. Mild left common femoral stenotic disease. Severe distal left SFA stenotic disease with calcifications. Moderate popliteal disease. Three-vessel runoff. IMPRESSION: 1. Mild aneurysmal dilatation of the infrarenal abdominal aorta. 2. Bilateral patent iliac artery stents. 3. A large seroma or liquefied hematoma is present in the proximal right thigh. 4. There is proximal right SFA stenotic disease. There is three-vessel runoff on the right. 5. There is severe distal left SFA stenotic disease. There is 3 vessel runoff on the left. Dictated by: Richard Jones M.D. on 03/05/2022 at 18:06 Approved by: Richard Jones M.D. on 03/05/2022 at 18:18
[2022-03-05] MEDS: DOXYCYCLINE HYCLATE 100 MG TABLET PO (18:49)
== END 2022-03-05 19:03 | disposition home or self-care (01) ==
PROVIDERS: Emergency Provider Nurse Practitioner Critical Care Medicine; Family Provider Internal Medicine; PCP Internal Medicine
DX: L03.314 Cellulitis of groin (principal); Z79.01 Long term (current) use of anticoagulants; I71.4 Abdominal aortic aneurysm, without rupture; Z86.79 Personal history of other diseases of the circulatory system; Z20.822 Contact with and (suspected) exposure to COVID-19
CPT/HCPCS: 36415; 71046; 75635; 76857; 80053; 81001; 82550; 83605; 83880; 84145; 84484; 85025; 85610; 85730; 87040; 87635; 93005; 93010; 93926; 96365; 96375; 99284; C9803; J0696; J2405; Q9967

== ENCOUNTER 2022-06-17 07:56 | Emergency (ER) | payer MEDICARE, SELFPAY ==
[2022-06-17] VITALS (13 sets, daily range): BP systolic 130–175; BP diastolic 65–86; PULSE 63–80; RESP 14; TEMP 36.1; O2SAT 93–96
--- NOTE | 2022-06-17 08:35 | ED.WOUNDLAC ---
HPI - Wound/Laceration General Chief Complaint: Wound/Laceration Stated Complaint: bit tounge yesterday wont stop bleeding takes thin Time Seen by Provider: 06/17/22 08:01 Source: patient Mode of arrival: Ambulatory History of Present Illness HPI narrative: Mr. Zhang is a 77-year-old man who bit his tongue last night and since he takes warfarin had trouble getting the bleeding under control overnight. They have used a number of home remedies including salt and pressure but it continues to bleed a fair amount. They have come to the ER to help with hemostasis. Takes warfarin for atrial fibrillation as I said, he did his own INR test this morning and the result was 2.6. Feels a little queasy from the blood he has swallowed but otherwise feels well. Denies any other illness or injury today. Related Data Home Medications Medication Instructions Recorded Confirmed aspirin 81 mg tablet,delayed 81 mg PO DAILY 12/20/21 03/05/22 release calcium carbonate 200 mg calcium 400 mg PO DAILY 12/20/21 03/05/22 (500 mg) chewable tablet (Tums) carvedilol 3.125 mg tablet 3.125 mg PO BID 12/20/21 03/05/22 cholecalciferol (vitamin D3) 25 25 mcg PO DAILY 12/20/21 03/05/22 mcg (1,000 unit) capsule ezetimibe 10 mg tablet (Zetia) 10 mg PO DAILY 12/20/21 03/05/22 finasteride 5 mg tablet 5 mg PO DAILY 12/20/21 03/05/22 glucosamine-chondroitin 500 mg-400 1 cap PO BID 12/20/21 03/05/22 mg capsule losartan 100 mg tablet 100 mg PO DAILY 12/20/21 03/05/22 multivitamin 1 tab PO DAILY 12/20/21 03/05/22 omeprazole 40 mg capsule,delayed 40 mg PO DAILY 12/20/21 03/05/22 release oxybutynin chloride 5 mg 5 mg PO DAILY 12/20/21 03/05/22 tablet,extended release 24 hr rosuvastatin 40 mg tablet 40 mg PO DAILY 12/20/21 03/05/22 tamsulosin 0.4 mg capsule 0.4 mg PO BID 12/20/21 03/05/22 diclofenac sodium 1 % topical gel 4 g topical QID PRN 03/05/22 03/05/22 warfarin 5 mg tablet 5 mg PO .COMPLEX 03/05/22 03/05/22 Previous Rx's Medication Instructions Recorded tramadol 50 mg tablet 50 mg PO Q6H PRN pain #180 tabs 12/20/21 amlodipine 5 mg tablet 5 mg PO DAILY #90 tabs 02/13/22 Allergies Allergy/AdvReac Type Severity Reaction Status Date / Time lisinopril AdvReac Severe gait Verified 12/20/21 15:31 cefazolin [From Ancef] AdvReac Nausea Verified 12/20/21 15:31 metoprolol AdvReac Wheezing Verified 12/20/21 15:31 Review of Systems Review of Systems Narrative: Complete review of systems is negative other than as noted above. Patient History Medical History Abdominal aortic aneurysm (~2018) BPH w urinary obs/LUTS Cataracts, bilateral (~2016) Chicken pox (~1949) Chronic anticoagulation Chronic atrial fibrillation Chronic back pain Colon polyps Coronary artery disease CPAP (continuous positive airway pressure) dependence (~2012) Do not resuscitate Essential hypertension GERD without esophagitis Hearing loss (~1996) Hepatitis A (~1967) History of kidney cancer History of urinary incontinence (~2013) Measles (~1949) Mixed hyperlipidemia Peripheral vascular disease (~1989) Primary osteoarthritis involving multiple joints Right groin mass Severe obesity Stroke (~2018) Surgical History Anesthesia History of appendectomy (~1952) History of arthroscopic knee surgery (~1990) History of arthroscopic knee surgery (~2008) History of carotid endarterectomy (~11/26/18) History of cataract removal with insertion of prosthetic lens History of endarterectomy (~06/26/21) History of femoral angiogram (~2013) History of heart bypass surgery (~2009) History of hernia repair (~1964) History of kidney surgery (~2001) History of repair of rotator cuff (~2009) History of surgery (~1989) History of surgery History of tonsillectomy (~1950) History of vasectomy (~1990) Lump in scrotum (~2008) S/P transesophageal echocardiogram (JOHN) (~05/09/19) Squamous cell skin cancer (~01/24/20) Surgical procedure planned (~05/23/19) Family History Father Diabetes mellitus Mother History of heart disease Hypertension Hyperlipidemia Sister Cerebral hemorrhage Social History Smoking Status: Former smoker Smoking Status: Former smoker Substance Use Type: does not use Exam Narrative Exam Narrative: GENERAL: Alert, cooperative and in no distress. HEAD: Atraumatic. Normocephalic. EYES: Sclera are clear without icterus. Extraocular movements are full. ENT: No rhinorrhea. Oropharynx is moist. Small laceration at the back of the tongue on the right lateral aspect oozing blood NECK: Supple. Full range of motion. CARDIOVASCULAR: Normal rate and rhythm without murmur gallop or rub. RESPIRATORY: Clear to auscultation. Breath sounds equal bilaterally. No wheezes, rales, or rhonchi. GASTROINTESTINAL: Abdomen soft, non-tender, nondistended. EXTREMITIES: No edema, full range of motion. No obvious trauma. NEURO: Nonfocal examination, normal speech, normal gait. SKIN: No rash or erythema of visible areas PSYCH: Normally oriented. Normal range of affect. Appropriate behavior Initial Vital Signs Initial Vital Signs: Vital Signs Temperature 97.0 F L 06/17/22 08:08 Respiratory Rate 14 06/17/22 08:08 Blood Pressure 151/71 H 06/17/22 08:08 Course Course Course Narrative: After 2 separate applications of TXA saturated gauze to the bleeding area on the back of his tongue, hemostasis is finally obtained. H&H is stable since February, his INR is 3.1. His orthostatic vital signs are reassuring. I think home discharge at this point is fine. Orders Ordered: ED Orders 06/17/22 09:10 CBC Auto Diff [Complete Blood Count AUTO DIFF] Stat Prothrombin Time INR Stat Discontinued Medications Tranexamic Acid (Tranexamic Acid 1,000 Mg Vial) 1,000 mg TOP NOW ONE Stop: 06/17/22 08:28 Last Admin: 06/17/22 08:43 Dose: 1,000 mg Documented By: KATHERYN Vital Signs Vital signs: Vital Signs - 8 hr 06/17/22 08:08 06/17/22 09:22 06/17/22 08:10 Temperature 97.0 F L Pulse Rate 66 Pulse Rate [Orthostatic Lying] 70 Pulse Rate [Orthostatic Sitting] 80 Pulse Rate [Orthostatic Standing] 75 Respiratory Rate 14 Blood Pressure 151/71 H Blood Pressure [Orthostatic Lying] 135/69 Blood Pressure [Orthostatic Sitting] 136/72 Blood Pressure [Orthostatic Standing] 138/77 Pulse Oximetry 96 06/17/22 08:30 06/17/22 09:00 06/17/22 09:08 Temperature Pulse Rate 65 65 63 Pulse Rate [Orthostatic Lying] Pulse Rate [Orthostatic Sitting] Pulse Rate [Orthostatic Standing] Respiratory Rate Blood Pressure Blood Pressure [Orthostatic Lying] Blood Pressure [Orthostatic Sitting] Blood Pressure [Orthostatic Standing] Pulse Oximetry 96 95 95 06/17/22 09:08 06/17/22 09:19 06/17/22 09:19 Temperature Pulse Rate 68 Pulse Rate [Orthostatic Lying] Pulse Rate [Orthostatic Sitting] Pulse Rate [Orthostatic Standing] Respiratory Rate Blood Pressure 175/86 H 135/69 Blood Pressure [Orthostatic Lying] Blood Pressure [Orthostatic Sitting] Blood Pressure [Orthostatic Standing] Pulse Oximetry 94 06/17/22 09:20 06/17/22 09:20 06/17/22 09:21 Temperature Pulse Rate 75 79 Pulse Rate [Orthostatic Lying] Pulse Rate [Orthostatic Sitting] Pulse Rate [Orthostatic Standing] Respiratory Rate Blood Pressure 136/72 Blood Pressure [Orthostatic Lying] Blood Pressure [Orthostatic Sitting] Blood Pressure [Orthostatic Standing] Pulse Oximetry 93 93 06/17/22 09:21 06/17/22 09:30 06/17/22 10:00 Temperature Pulse Rate 66 66 Pulse Rate [Orthostatic Lying] Pulse Rate [Orthostatic Sitting] Pulse Rate [Orthostatic Standing] Respiratory Rate Blood Pressure 138/77 Blood Pressure [Orthostatic Lying] Blood Pressure [Orthostatic Sitting] Blood Pressure [Orthostatic Standing] Pulse Oximetry 95 95 06/17/22 10:07 06/17/22 10:07 Temperature Pulse Rate 67 Pulse Rate [Orthostatic Lying] Pulse Rate [Orthostatic Sitting] Pulse Rate [Orthostatic Standing] Respiratory Rate Blood Pressure 130/65 Blood Pressure [Orthostatic Lying] Blood Pressure [Orthostatic Sitting] Blood Pressure [Orthostatic Standing] Pulse Oximetry 94 MDM - Wound/Laceration Lab Data Result diagrams: 06/17/22 09:10 Labs: Lab Results 06/17/22 06/17/22 Range/Units 09:10 09:10 WBC 9.7 (4.5-11.0) X10^3/uL RBC 4.47 L (4.5-5.9) X10^6/uL Hgb 13.2 L (13.5-17.5) g/dL Hct 40.6 L (41-53) % MCV 90.8 (80-100) fL MCH 29.5 (26-34) PG MCHC 32.5 (30-36) % RDW 14.9 H (11.6-14.8) % Plt Count 240 (150-400) X10^3/uL Neut % (Auto) 77.5 H (50-75) % Lymph % (Auto) 10.8 L (25-40) % Metcalfe % (Auto) 10.1 (3-14) % Eos % (Auto) 1.0 L (2-4) % Baso % (Auto) 0.6 (0-2) % Neut # (Auto) 7500 H (5400-6324) /uL Lymph # (Auto) 1100 (2311-5231) /uL [place]calfe # (Auto) 1000 H (0-900) /uL Eos # (Auto) 100 (0-450) /uL Baso # (Auto) 100 (0-100) /uL PT 36.1 H (10.1-12.7) SECONDS INR 3.1 H (0.9-1.3) Discharge Plan Departure Patient Disposition: Home Clinical Impression: Laceration of tongue, Elevated INR Activity Restrictions/Additional Instructions: No specific additional therapy is recommended. If the bleeding starts up again, I would soak a gauze with Afrin and present to the bleeding area for a prolonged period of time. I would hold off on taking warfarin today and not resumed taking it until it has been at least 24 hours since any significant bleeding from your tongue. Of course if the bleeding resumes and you can not get it controlled, you should return to the ER. Prescriptions: No Action amlodipine 5 mg tablet 5 mg PO DAILY Qty: 90 3RF calcium carbonate [Tums] 200 mg calcium (500 mg) tablet,chewable 400 mg PO DAILY aspirin 81 mg tablet,delayed release (DR/EC) 81 mg PO DAILY carvedilol 3.125 mg tablet 3.125 mg PO BID Rx Instructions: must administer with a meal/food cholecalciferol (vitamin D3) 25 mcg (1,000 unit) capsule 25 mcg PO DAILY ezetimibe [Zetia] 10 mg tablet 10 mg PO DAILY finasteride 5 mg tablet 5 mg PO DAILY glucosamine-chondroitin 500-400 mg capsule 1 cap PO BID Rx Instructions: give with meal/snack losartan 100 mg tablet 100 mg PO DAILY multivitamin Tablet 1 tab PO DAILY omeprazole 40 mg capsule,delayed release(DR/EC) 40 mg PO DAILY oxybutynin chloride 5 mg tablet extended release 24 hr 5 mg PO DAILY rosuvastatin 40 mg tablet 40 mg PO DAILY tamsulosin 0.4 mg capsule 0.4 mg PO BID tramadol 50 mg tablet 50 mg PO Q6H PRN (Reason: pain) Qty: 180 1RF diclofenac sodium 1 % gel 4 g topical QID PRN Rx Instructions: apply to single knee, ankle, foot; for foot includes sole/toes/top of foot warfarin 5 mg tablet 5 mg PO .COMPLEX Rx Instructions: 5 mg orally 7.5 mg on Mondays; 5 mg all other days.; managed by [facility] cardiology Referrals: Joel Momin MD [Primary Care Provider] -
[2022-06-17] MEDS: TRANEXAMIC ACID 1,000 MG VIAL 1000 MG TOP (08:43)
[2022-06-17 09:26] LABS: Add Manual Diff / Slide Review NO; Basophils Absolute Auto 100 /uL (0-100); Basophils Percent Auto 0.6 % (0-2); Eosinophils Absolute Auto 100 /uL (0-450); Hematocrit 40.6 % (41-53); Hemoglobin 13.2 g/dL (13.5-17.5); Lymphocytes Absolute Auto 1100 /uL (1100-4500); Lymphocytes Percent Auto 10.8 % (25-40); Mean Corpuscular HGB Conc 32.5 % (30-36); Mean Corpuscular Hemoglobin 29.5 PG (26-34); Mean Corpuscular Volume 90.8 fL (80-100); Monocytes Absolute Auto 1000 /uL (0-900); Monocytes Percent Auto 10.1 % (3-14); Neutrophils Absolute Auto 7500 /uL (1500-7000); Neutrophils Percent Auto 77.5 % (50-75); Platelet Count 240 X10^3/uL (150-400); Red Blood Cell Count 4.47 X10^6/uL (4.5-5.9); Red Cell Distribution Width 14.9 % (11.6-14.8); White Blood Cell Count 9.7 X10^3/uL (4.5-11.0)
[2022-06-17 09:32] LABS: INR 3.1 (0.9-1.3); Prothrombin Time 36.1 SECONDS (10.1-12.7)
--- NOTE | 2022-06-17 10:16 | PC.NURSE ---
Pt bit his tongue last night at dinner, daughter states it continued to bleed all night. Pt takes warfarin. TXA applied by ED physician.
== END 2022-06-17 11:02 | disposition home or self-care (01) ==
PROVIDERS: Emergency Provider Family Medicine Addiction Medicine; Family Provider Internal Medicine; PCP Internal Medicine
DX: S01.512A Laceration without foreign body of oral cavity, initial encounter (principal); D68.9 Coagulation defect, unspecified; Z79.01 Long term (current) use of anticoagulants; X58.XXXA Exposure to other specified factors, initial encounter
CPT/HCPCS: 36415; 85025; 85610; 99283

== ENCOUNTER → 2022-06-23 12:28 | Outpatient (CLI) | payer MEDICARE, SELFPAY ==
[2022-06-23 17:58] LABS: Prostate Specific Antigen 2.97 ng/mL (0.10-4.00)
== END ==
PROVIDERS: Family Provider Internal Medicine; PCP Internal Medicine; Referring Provider Internal Medicine; Visit Provider Internal Medicine
DX: N40.1 Benign prostatic hyperplasia with lower urinary tract symptoms (principal); N13.8 Other obstructive and reflux uropathy
CPT/HCPCS: 36415; 84153

== ENCOUNTER → 2023-02-25 10:35 | Outpatient (CLI) | payer MEDICARE, SELFPAY ==
[2023-02-25 11:14] LABS: Hemoglobin 10.1 g/dL (13.5-17.5); Mean Corpuscular HGB Conc 31.5 % (30-36); Mean Corpuscular Hemoglobin 24.4 PG (26-34); Mean Corpuscular Volume 77.5 fL (80-100); Platelet Count 246 X10^3/uL (150-400); Red Blood Cell Count 4.13 X10^6/uL (4.5-5.9); Red Cell Distribution Width 19.8 % (11.6-14.8); White Blood Cell Count 6.6 X10^3/uL (4.5-11.0)
[2023-02-25 11:26] LABS: Alanine Aminotransferase 29 IU/L (<50); Albumin 3.9 g/dL (3.5-5.0); Albumin Globulin Ratio 1.3 (1.0-2.8); Alkaline Phosphatase 50 U/L (38-126); Aspartate Aminotransferase 32 IU/L (17-59); BUN Creatinine Ratio 16.9 (6-22); Bilirubin Total 0.5 mg/dL (0.2-1.3); Blood Urea Nitrogen 11 mg/dL (9-20); Calcium 8.5 mg/dL (8.4-10.2); Carbon Dioxide 28 mmol/L (22-32); Chloride 103 mmol/L (98-107); Cholesterol 114 mg/dL (140-199); Estimated Glomerular Filt Rate > 60 mL/min (>60); Globulin 3.1 g/dL (1.7-4.1); Glucose 101 mg/dL (80-110); HDL Cholesterol 30 mg/dL (40-60); HEMOLYSIS < 15 (0-50); LDL Cholesterol Calculated 57 mg/dL (<100); Potassium 4.5 mmol/L (3.4-5.1); Sodium 137 mmol/L (137-145); Triglycerides 136 mg/dL (35-150)
[2023-02-25 12:00] LABS: Ferritin 9 ng/mL (18-464)
[2023-02-25 12:07] LABS: TSH w/ Reflex to FT4 1.99 uIU/mL (0.47-4.68)
== END ==
PROVIDERS: Family Provider Internal Medicine; PCP Internal Medicine; Referring Provider Internal Medicine; Visit Provider Internal Medicine
DX: D50.9 Iron deficiency anemia, unspecified (principal); I48.20 Chronic atrial fibrillation, unspecified; Z79.01 Long term (current) use of anticoagulants; E78.00 Pure hypercholesterolemia, unspecified
CPT/HCPCS: 36415; 80053; 80061; 82728; 84443; 85027

== ENCOUNTER → 2023-03-20 14:32 | Outpatient (CLI) | payer MEDICARE, SELFPAY ==
[2023-03-20 15:24] LABS: Hematocrit 39.3 % (41-53); Hemoglobin 12.9 g/dL (13.5-17.5); Mean Corpuscular HGB Conc 32.7 % (30-36); Mean Corpuscular Volume 82.8 fL (80-100); Platelet Count 206 X10^3/uL (150-400); Red Blood Cell Count 4.75 X10^6/uL (4.5-5.9); Red Cell Distribution Width 25.9 % (11.6-14.8); White Blood Cell Count 6.8 X10^3/uL (4.5-11.0)
[2023-03-20 16:59] LABS: Ferritin 33 ng/mL (18-464)
[2023-03-20 17:19] LABS: HEMOLYSIS 16 (0-50); Iron 56 ug/dL (49-181)
[2023-03-20 17:35] LABS: Percent Iron Saturation 13 % (20-50); Total Iron Binding Capacity 420 ug/dL (261-462); Transferrin 279 mg/dL (206-381)
== END ==
PROVIDERS: Family Provider Internal Medicine; PCP Internal Medicine; Referring Provider Internal Medicine; Visit Provider Internal Medicine
DX: D50.9 Iron deficiency anemia, unspecified (principal)
CPT/HCPCS: 36415; 82728; 83540; 83550; 85027

== ENCOUNTER → 2023-03-23 16:53 | Outpatient (CLI) | payer MEDICARE, SELFPAY ==
[2023-03-23 18:13] LABS: Occult Blood 1 Negative (Negative)
[2023-03-23 18:14] LABS: Occult Blood 2 Negative (Negative); Occult Blood 3 Negative (Negative)
== END ==
PROVIDERS: Family Provider Internal Medicine; PCP Internal Medicine; Referring Provider Internal Medicine; Visit Provider Internal Medicine
DX: D50.9 Iron deficiency anemia, unspecified (principal)
CPT/HCPCS: 82270

== ENCOUNTER → 2023-09-22 15:06 | Outpatient (CLI) | payer MEDICARE, SELFPAY ==
[2023-09-22 15:26] LABS: Hematocrit 39.3 % (41-53); Hemoglobin 12.9 g/dL (13.5-17.5); Mean Corpuscular HGB Conc 32.9 % (30-36); Mean Corpuscular Hemoglobin 29.3 PG (26-34); Mean Corpuscular Volume 89.2 fL (80-100); Platelet Count 208 X10^3/uL (150-400); Red Blood Cell Count 4.41 X10^6/uL (4.5-5.9); Red Cell Distribution Width 15.6 % (11.6-14.8)
[2023-09-22 15:45] LABS: HEMOLYSIS < 15 (0-50); Iron 48 ug/dL (49-181)
[2023-09-22 15:49] LABS: Alanine Aminotransferase 22 IU/L (<50); Albumin Globulin Ratio 1.3 (1.0-2.8); Alkaline Phosphatase 43 U/L (38-126); Aspartate Aminotransferase 31 IU/L (17-59); BUN Creatinine Ratio 16.7 (6-22); Bilirubin Total 0.8 mg/dL (0.2-1.3); Blood Urea Nitrogen 15 mg/dL (9-20); Calcium 8.9 mg/dL (8.4-10.2); Carbon Dioxide 25 mmol/L (22-32); Chloride 106 mmol/L (98-107); Estimated Glomerular Filt Rate > 60 mL/min (>60); Glucose 96 mg/dL (80-110); HEMOLYSIS < 15 (0-50); Potassium 4.3 mmol/L (3.4-5.1); Sodium 138 mmol/L (137-145)
[2023-09-22 15:58] LABS: Percent Iron Saturation 12 % (20-50); Total Iron Binding Capacity 387 ug/dL (261-462); Transferrin 314 mg/dL (206-381)
[2023-09-22 16:22] LABS: Ferritin 9 ng/mL (18-464)
== END ==
PROVIDERS: Family Provider Internal Medicine; PCP Internal Medicine; Referring Provider Internal Medicine; Visit Provider Internal Medicine
DX: D50.9 Iron deficiency anemia, unspecified (principal); I48.20 Chronic atrial fibrillation, unspecified
CPT/HCPCS: 36415; 80053; 82728; 83540; 83550; 85027

== ENCOUNTER → 2023-12-28 08:39 | Outpatient (CLI) | payer MEDICARE, SELFPAY ==
[2023-12-28 09:52] LABS: Appearance Urine UA CLEAR; Bilirubin Urine UA NEGATIVE (NEGATIVE); Color Urine UA YELLOW; Glucose Urine UA NEGATIVE (Negative); Ketones Urine UA NEGATIVE (NEGATIVE); Leukocyte Esterase Urine UA NEGATIVE (NEGATIVE); Nitrite Urine UA NEGATIVE (Negative); Occult Blood Urine UA NEGATIVE (Negative); Protein Urine UA NEGATIVE (Negative); Specific Gravity Urine UA 1.015 (1.000-1.035); pH Urine UA 5.5 (4.5-8.0)
[2023-12-28 09:52] LABS: Hematocrit 36.6 % (41-53); Hemoglobin 11.9 g/dL (13.5-17.5); Mean Corpuscular HGB Conc 32.6 % (30-36); Mean Corpuscular Hemoglobin 28.8 PG (26-34); Mean Corpuscular Volume 88.4 fL (80-100); Platelet Count 213 X10^3/uL (150-400); Red Blood Cell Count 4.14 X10^6/uL (4.5-5.9); White Blood Cell Count 7.5 X10^3/uL (4.5-11.0)
[2023-12-28 10:07] LABS: Bacteria Urine None Seen; RBC Urine None Seen (0-5/HPF); Squamous Epithelial Cell Urine None Seen (0-5/HPF); Urine Volume 10mL (spun); WBC Urine None Seen (0-5/HPF)
[2023-12-28 10:08] LABS: Culture Indicated Urine Cult Not Indicated
[2023-12-28 10:11] LABS: HEMOLYSIS < 15 (0-50); Iron 50 ug/dL (49-181)
[2023-12-28 10:13] LABS: Alanine Aminotransferase 21 IU/L (<50); Albumin 3.9 g/dL (3.5-5.0); Albumin Globulin Ratio 1.6 (1.0-2.8); Alkaline Phosphatase 49 U/L (38-126); Aspartate Aminotransferase 26 IU/L (17-59); BUN Creatinine Ratio 15.9 (6-22); Bilirubin Total 0.6 mg/dL (0.2-1.3); Blood Urea Nitrogen 11 mg/dL (9-20); Calcium 8.9 mg/dL (8.4-10.2); Carbon Dioxide 32 mmol/L (22-32); Chloride 106 mmol/L (98-107); Estimated Glomerular Filt Rate > 60 mL/min (>60); Globulin 2.4 g/dL (1.7-4.1); Glucose 97 mg/dL (80-110); HEMOLYSIS < 15 (0-50); Potassium 4.6 mmol/L (3.4-5.1); Sodium 139 mmol/L (137-145); Total Protein 6.3 g/dL (6.3-8.2)
[2023-12-28 10:24] LABS: Percent Iron Saturation 13 % (20-50); Total Iron Binding Capacity 373 ug/dL (261-462); Transferrin 279 mg/dL (206-381)
[2023-12-28 10:43] LABS: TSH w/ Reflex to FT4 1.57 uIU/mL (0.47-4.68)
[2023-12-28 10:48] LABS: Ferritin 8 ng/mL (18-464)
== END ==
PROVIDERS: Family Provider Internal Medicine; PCP Internal Medicine; Referring Provider Internal Medicine; Visit Provider Internal Medicine
DX: D50.9 Iron deficiency anemia, unspecified (principal); I48.20 Chronic atrial fibrillation, unspecified; I25.10 Atherosclerotic heart disease of native coronary artery without angina pectoris; R35.0 Frequency of micturition; N39.0 Urinary tract infection, site not specified
CPT/HCPCS: 36415; 80053; 81001; 82728; 83540; 83550; 84443; 85027

== ENCOUNTER → 2024-01-19 11:28 | Outpatient (CLI) | payer MEDICARE, SELFPAY ==
--- NOTE | 2024-01-19 11:29 | DI.RAD.S_ITS ---
PROCEDURE: XR KNEE LT 3V INDICATIONS: Knee pain and weakness TECHNIQUE: 3 views of the knee were acquired. COMPARISON: None. FINDINGS: Bones: No fractures or dislocations. [id number] tricompartmental osteoarthritis is seen more notably in medial femoral tibial compartment. No significant patellar subluxation. No suspicious bony lesions. Soft tissues: Moderate suprapatellar joint effusion is seen. No suspicious soft tissue calcifications. IMPRESSION: No acute left knee fracture or dislocation. [id number] tricompartmental osteoarthritis and moderate joint effusion as above. Dictated by: Audie Baez M.D. on 01/19/2024 at 17:25 Approved by: Audie Baez M.D. on 01/19/2024 at 17:26
--- NOTE | 2024-01-19 11:29 | DI.RAD.S_ITS ---
PROCEDURE: XR ANKLE RT MIN 3V INDICATIONS: ankle pain TECHNIQUE: 3 views of the ankle were acquired. COMPARISON: None. FINDINGS: Bones: No fractures or dislocations. Ankle mortise is normally aligned. No suspicious bony lesions. Small plantar calcaneal enthesophyte is seen. Soft tissues: Several surgical clips are noted in soft tissue along medial aspect of distal lower leg. No tibiotalar joint effusion. Achilles tendon appears normal. IMPRESSION: No acute ankle fracture or dislocation. No significant joint effusion. Plantar calcaneal enthesophyte. Dictated by: Audie Baez M.D. on 01/19/2024 at 17:23 Approved by: Audie Baez M.D. on 01/19/2024 at 17:25
== END ==
PROVIDERS: Family Provider Internal Medicine; PCP Internal Medicine; Referring Provider Internal Medicine; Visit Provider Internal Medicine
DX: M17.12 Unilateral primary osteoarthritis, left knee (principal); M77.31 Calcaneal spur, right foot; M25.571 Pain in right ankle and joints of right foot; M25.562 Pain in left knee; M25.462 Effusion, left knee; M25.369 Other instability, unspecified knee
CPT/HCPCS: 73562; 73610

== ENCOUNTER → 2024-02-29 13:09 | Outpatient (CLI) | payer MEDICARE, SELFPAY ==
[2024-02-29 14:05] LABS: Add Manual Diff / Slide Review NO; Basophils Absolute Auto 0 /uL (0-100); Basophils Percent Auto 0.1 % (0-2); Eosinophils Absolute Auto 100 /uL (0-450); Eosinophils Percent Auto 0.7 % (2-4); Hematocrit 44.4 % (41-53); Lymphocytes Absolute Auto 1000 /uL (1100-4500); Lymphocytes Percent Auto 11.9 % (25-40); Mean Corpuscular HGB Conc 33.7 % (30-36); Mean Corpuscular Hemoglobin 30.7 PG (26-34); Mean Corpuscular Volume 91.2 fL (80-100); Monocytes Absolute Auto 800 /uL (0-900); Monocytes Percent Auto 9.8 % (3-14); Neutrophils Absolute Auto 6300 /uL (1500-7000); Neutrophils Percent Auto 77.5 % (50-75); Platelet Count 208 X10^3/uL (150-400); Red Blood Cell Count 4.87 X10^6/uL (4.5-5.9); Red Cell Distribution Width 19.6 % (11.6-14.8); White Blood Cell Count 8.1 X10^3/uL (4.5-11.0)
[2024-02-29 14:26] LABS: HEMOLYSIS < 15 (0-50); Iron 101 ug/dL (49-181)
[2024-02-29 14:40] LABS: Percent Iron Saturation 35 % (20-50); Total Iron Binding Capacity 290 ug/dL (261-462); Transferrin 210 mg/dL (206-381)
[2024-02-29 15:06] LABS: Ferritin 60 ng/mL (18-464)
== END ==
PROVIDERS: Family Provider Internal Medicine; PCP Internal Medicine; Referring Provider Internal Medicine; Visit Provider Internal Medicine
DX: D50.9 Iron deficiency anemia, unspecified (principal)
CPT/HCPCS: 36415; 82728; 83540; 83550; 85025

== ENCOUNTER → 2024-06-28 09:05 | Outpatient (CLI) | payer MEDICARE, SELFPAY ==
[2024-06-28 09:56] LABS: Hematocrit 45.6 % (41-53); Hemoglobin 15.5 g/dL (13.5-17.5); Mean Corpuscular HGB Conc 34.1 % (30-36); Mean Corpuscular Hemoglobin 32.7 PG (26-34); Platelet Count 207 X10^3/uL (150-400); Red Blood Cell Count 4.75 X10^6/uL (4.5-5.9); Red Cell Distribution Width 13.8 % (11.6-14.8); White Blood Cell Count 7.7 X10^3/uL (4.5-11.0)
[2024-06-28 10:06] LABS: HEMOLYSIS < 15 (0-50); Iron 96 ug/dL (49-181)
[2024-06-28 10:08] LABS: Alanine Aminotransferase 20 IU/L (<50); Albumin 4.2 g/dL (3.5-5.0); Albumin Globulin Ratio 1.6 (1.0-2.8); Alkaline Phosphatase 64 U/L (38-126); Aspartate Aminotransferase 23 IU/L (17-59); BUN Creatinine Ratio 23.1 (6-22); Bilirubin Total 0.7 mg/dL (0.2-1.3); Blood Urea Nitrogen 15 mg/dL (9-20); Calcium 9.3 mg/dL (8.4-10.2); Carbon Dioxide 25 mmol/L (22-32); Chloride 105 mmol/L (98-107); Cholesterol 237 mg/dL (140-199); Estimated Glomerular Filt Rate > 60 mL/min (>60); Globulin 2.6 g/dL (1.7-4.1); Glucose 111 mg/dL (80-110); HDL Cholesterol 28 mg/dL (40-60); HEMOLYSIS < 15 (0-50); LDL Cholesterol Calculated 152 mg/dL (<100); Potassium 4.5 mmol/L (3.4-5.1); Sodium 137 mmol/L (137-145); Total Protein 6.8 g/dL (6.3-8.2); Triglycerides 283 mg/dL (35-150)
[2024-06-28 10:20] LABS: Percent Iron Saturation 30 % (20-50); Total Iron Binding Capacity 319 ug/dL (261-462); Transferrin 248 mg/dL (206-381)
[2024-06-28 10:44] LABS: Ferritin 30 ng/mL (18-464)
== END ==
PROVIDERS: Family Provider Internal Medicine; PCP Internal Medicine; Referring Provider Internal Medicine; Visit Provider Internal Medicine
DX: D50.9 Iron deficiency anemia, unspecified (principal); E78.2 Mixed hyperlipidemia; I10 Essential (primary) hypertension; I25.112 Atherosclerotic heart disease of native coronary artery with refractory angina pectoris; I48.20 Chronic atrial fibrillation, unspecified; Z79.01 Long term (current) use of anticoagulants; I49.3 Ventricular premature depolarization; I71.40 Abdominal aortic aneurysm, without rupture, unspecified; N40.1 Benign prostatic hyperplasia with lower urinary tract symptoms; K21.9 Gastro-esophageal reflux disease without esophagitis; M54.50 Low back pain, unspecified; E66.9 Obesity, unspecified; Z68.30 Body mass index [BMI] 30.0-30.9, adult
CPT/HCPCS: 36415; 80053; 80061; 82728; 83540; 83550; 85027

== ENCOUNTER → 2024-10-31 07:41 | Outpatient (CLI) | payer MEDICARE, SELFPAY ==
[2024-10-31 08:09] LABS: Hematocrit 44.9 % (41-53); Hemoglobin 15.4 g/dL (13.5-17.5); Mean Corpuscular HGB Conc 34.2 % (30-36); Mean Corpuscular Volume 96.4 fL (80-100); Platelet Count 203 X10^3/uL (150-400); Red Blood Cell Count 4.66 X10^6/uL (4.5-5.9); Red Cell Distribution Width 13.5 % (11.6-14.8); White Blood Cell Count 6.7 X10^3/uL (4.5-11.0)
[2024-10-31 08:27] LABS: HEMOLYSIS < 15 (0-50); Iron 77 ug/dL (49-181)
[2024-10-31 08:31] LABS: BUN Creatinine Ratio 20.5 (6-22); Blood Urea Nitrogen 15 mg/dL (9-20); Calcium 9.3 mg/dL (8.4-10.2); Carbon Dioxide 24 mmol/L (22-32); Chloride 106 mmol/L (98-107); Cholesterol 209 mg/dL (140-199); Estimated Glomerular Filt Rate > 60 mL/min (>60); Glucose 108 mg/dL (80-110); HDL Cholesterol 31 mg/dL (40-60); HEMOLYSIS < 15 (0-50); LDL Cholesterol Calculated 130 mg/dL (<100); Potassium 4.1 mmol/L (3.4-5.1); Sodium 140 mmol/L (137-145); Triglycerides 238 mg/dL (35-150); Uric Acid 7.3 mg/dL (3.5-8.5)
[2024-10-31 08:43] LABS: Percent Iron Saturation 23 % (20-50); Total Iron Binding Capacity 330 ug/dL (261-462); Transferrin 298 mg/dL (206-381)
[2024-10-31 09:04] LABS: Ferritin 43 ng/mL (18-464)
== END ==
PROVIDERS: Family Provider Internal Medicine; PCP Internal Medicine; Referring Provider Internal Medicine; Visit Provider Internal Medicine
DX: D50.9 Iron deficiency anemia, unspecified (principal); E78.2 Mixed hyperlipidemia; I10 Essential (primary) hypertension
CPT/HCPCS: 36415; 80048; 80061; 82728; 83540; 83550; 84550; 85027